=== PATIENT | female | born 2000 | race American Indian/Alaskan Native ===

== ENCOUNTER 2020-05-29 15:09 | Emergency (ER) | payer SELFPAY ==
[2020-05-29 15:51] VITALS: BP 128/88
--- NOTE | 2020-05-29 16:07 | Emergency Department Report ---
- General Chief complaint: Skin/Abscess/Foreign Body Stated complaint: UPPER STOMACH HIVES AND PAIN Time Seen by Provider: 05/29/20 16:02 Source: patient Mode of arrival: Ambulatory Limitations: No Limitations - History of Present Illness Initial comments: pt is a 20 yo female who presents to the ED with c/o hives that began this morning. she states she has some mild itching. she denies any facial swelling, body swelling, difficulty breathing, difficulty swallowing. she denies any known allergies. pt states she did travel to [place] a couple of days ago and sleep in a different place. she denies any known sick contacts. PMHx nephrotic syndrome. no allergies to meds. LNMP: beginning of this month. - Related Data Previous Rx's Medication Instructions Recorded Last Taken Type Famotidine [Pepcid] 40 mg PO QHS #10 tablet 05/29/20 Unknown Rx Prednisone [predniSONE 10 mg 10 mg PO .TAPER #1 tab.ds.pk 05/29/20 Unknown Rx (6-Day Pack, 21 Tabs)] diphenhydrAMINE [Benadryl CAP] 50 mg PO Q8HR PRN #10 capsule 05/29/20 Unknown Rx Allergies Allergy/AdvReac Type Severity Reaction Status Date / Time No Known Allergies Allergy Unverified 05/29/20 17:29 Abscess Boil HPI - HPI Chief Complaint: Skin/Abscess/Foreign Body Stated Complaint: UPPER STOMACH HIVES AND PAIN Time Seen by Provider: 05/29/20 16:02 Home Medications: Previous Rx's Medication Instructions Recorded Last Taken Type Famotidine [Pepcid] 40 mg PO QHS #10 tablet 05/29/20 Unknown Rx Prednisone [predniSONE 10 mg 10 mg PO .TAPER #1 tab.ds.pk 05/29/20 Unknown Rx (6-Day Pack, 21 Tabs)] diphenhydrAMINE [Benadryl CAP] 50 mg PO Q8HR PRN #10 capsule 05/29/20 Unknown Rx Allergies/Adverse Reactions: Allergies Allergy/AdvReac Type Severity Reaction Status Date / Time No Known Allergies Allergy Unverified 05/29/20 17:29 ED Review of Systems ROS: Stated complaint: UPPER STOMACH HIVES AND PAIN Other details as noted in HPI Comment: All other systems reviewed and negative ED Past Medical Hx - Past Medical History Hx Renal Disease: Yes - Surgical History Past Surgical History?: No - Social History Smoking Status: Never Smoker Substance Use Type: None - Medications Home Medications: Home Medications Medication Instructions Recorded Confirmed Last Taken Type Famotidine [Pepcid] 40 mg PO QHS #10 tablet 05/29/20 Unknown Rx Prednisone [predniSONE 10 mg 10 mg PO .TAPER #1 tab.ds.pk 05/29/20 Unknown Rx (6-Day Pack, 21 Tabs)] diphenhydrAMINE [Benadryl CAP] 50 mg PO Q8HR PRN #10 capsule 05/29/20 Unknown Rx ED Physical Exam - General Limitations: No Limitations General appearance: alert, in no apparent distress - Head Head exam: Present: atraumatic, normocephalic - Eye Eye exam: Present: normal appearance - ENT ENT exam: Present: normal orophraynx, mucous membranes moist, other (no angioedema) - Respiratory Respiratory exam: Present: normal lung sounds bilaterally. Absent: respiratory distress, wheezes, rales, rhonchi, stridor, chest wall tenderness, accessory muscle use, decreased breath sounds, prolonged expiratory - Cardiovascular Cardiovascular Exam: Present: regular rate, normal rhythm, normal heart sounds. Absent: systolic murmur, diastolic murmur, rubs, gallop - Neurological Exam Neurological exam: Present: alert, oriented X3 - Psychiatric Psychiatric exam: Present: normal affect, normal mood - Skin Skin exam: Present: warm, dry, urticaria (urticaria present surrounding the breast line and axillas and present to the medial thighs) ED Course Vital Signs 05/29/20 15:45 Temperature 97.7 F Pulse Rate 92 H Respiratory 18 Rate Blood Pressure 128/88 O2 Sat by Pulse 99 Oximetry ED Medical Decision Making - Medical Decision Making pt is a 20 yo female who presents to the ED with c/o hives that began this morning. she states she has some mild itching. she denies any facial swelling, body swelling, difficulty breathing, difficulty swallowing. she denies any known allergies. pt states she did travel to [place] a couple of days ago and sleep in a different place. she denies any known sick contacts. PMHx nephrotic syndrome. no allergies to meds. LNMP: beginning of this month. Vitals are normal. On exam:urticaria present surrounding the breast line and axillas and present to the medial thighs, no stridor, no respiratory distress, no angioedema. Symptoms appear consistent with a nonspecific urticaria outbreak. Patient given Benadryl while in the emergency department. Patient given prescription for Benadryl, Pepcid, prednisone. Advised patient please take medication as prescribed. do not drive or operate heavy machinery while taking benadryl. follow up with a primary care doctor for reexamination. return to the emergency room for any new or worsening symptoms. Critical care attestation.: If time is entered above; I have spent that time in minutes in the direct care of this critically ill patient, excluding procedure time. ED Disposition Clinical Impression: Urticaria Disposition: DC-01 TO HOME OR SELFCARE Is pt being admited?: No Does the pt Need Aspirin: No Condition: Stable Instructions: Hives Additional Instructions: please take medication as prescribed. do not drive or operate heavy machinery while taking benadryl. follow up with a primary care doctor for reexamination. return to the emergency room for any new or worsening symptoms. Prescriptions: Famotidine [Pepcid] 40 mg PO QHS #10 tablet diphenhydrAMINE [Benadryl CAP] 50 mg PO Q8HR PRN #10 capsule PRN Reason: rash/itching Prednisone [predniSONE 10 mg (6-Day Pack, 21 Tabs)] 10 mg PO .TAPER #1 tab.ds.pk Referrals: BROOKLYN SAVAGE MD [Staff Physician] - 2-3 Days [facility] [Provider Group] - 2-3 Days Time of Disposition: 16:11 Print Language: [id number]
[2020-05-29] MEDS ORDERED: diphenhydrAMINE 25 MG CAP PO ONE (17:29)
[2020-05-29] MEDS ORDERED: ONDANSETRON 4 MG ODT TAB PO ONE (17:39)
== END 2020-05-29 17:50 | disposition home or self-care (01) ==
LOC: ED 15:09
DX: L50.9 Urticaria, unspecified (principal); Z79.899 Other long term (current) drug therapy
CPT/HCPCS: 99282; Q0162